=== PATIENT | male | born 1975 | race Caucasian/White ===

== ENCOUNTER 2019-07-27 11:11 | Emergency (ER) | payer MEDICAID ==
[~2019-07-27] VITALS: Ht 185.4 cm; Wt 100.2 kg
[2019-07-27 11:20] VITALS: BP 139/87
[2019-07-27] MEDS ORDERED: LIDOcaine 1% W/epiNEPHrine 1:100,000 20ml vial SQ ONE (11:45)
== END 2019-07-27 12:26 | disposition home or self-care (01) ==
LOC: ER 11:12
DX: M70.22 Olecranon bursitis, left elbow (principal); Y93.89 Activity, other specified
CPT/HCPCS: 10060; 23931; 73080; 99283; 99284